=== PATIENT | female | born 1980 | race Two or more races ===

== ENCOUNTER 2023-10-18 23:43 | Emergency (ER) | payer OTHER ==
[~2023-10-18] VITALS: Ht 165.1 cm; Wt 76.4 kg
[2023-10-18 23:56] VITALS: BP 151/103; PULSE 91; RESP 16; O2SAT 96
[2023-10-19] MEDS ORDERED: KETOROLAC TROMETH 30 MG/ML 1ML VIAL IM ONE (01:15)
[2023-10-19] MEDS ORDERED: KETOROLAC TROMETH 30 MG/ML 1ML VIAL ONE (01:25)
== END 2023-10-19 03:52 | disposition home or self-care (01) ==
LOC: ER 23:43
DX: S93.402A Sprain of unspecified ligament of left ankle, initial encounter (principal); S93.602A Unspecified sprain of left foot, initial encounter; E11.9 Type 2 diabetes mellitus without complications; X50.1XXA Overexertion from prolonged static or awkward postures, initial encounter; Y93.89 Activity, other specified; Y92.89 Other specified places as the place of occurrence of the external cause; Y99.8 Other external cause status
CPT/HCPCS: 73610; 73630; 96372; 99284; J1885